=== PATIENT | female | born 1985 | race Caucasian/White ===

== ENCOUNTER 2016-08-28 09:34 | Emergency (ER) | payer BC ==
--- NOTE | 2016-08-28 10:35 | ER PHYSICIAN DOCUMENTATION ---
Physician Documentation [facility] Name:Lupis Hernandez Age:30 yrs Sex:Female :1985 Arrival Date:08/28/2016 Time:09:34 Bed3 Private MD: Harjit Husain Disposition: 08/29 20:52 Chart complete. tl1 20:53 F/U Call Note: I called on 08/29 at 2045 to f/u. she said she had no decrease in the tl1 periorbital swelling taking antihistamines. She started the Augmentin today and has noticed some decrease in the swelling this evening. Disposition: 08/28/16 10:15 Discharged to Home/Self Care. Impression: Periorbital Swelling. - Condition is Good. - Discharge Instructions: CELLULITIS, Facial. - Prescriptions for Augmentin 875- 125 mg Oral Tablet - take 1 tablet by ORAL route every 12 hours for 10 days; 20 tablet. - Medical Reconciliation form form. - Follow up: Emergency Department; When: 1 - 2 days; Reason: Recheck today's complaints, Continuance of care. - Problem is new. - Symptoms are unchanged. - Notes: THIS COULD BE EITHER A VIGOROUS LOCAL REACTION TO A BUG BITE OR AN ALLERGIC REACTION, VS, LESS LIKELY , A LOCAL SKIN INFECTION. TRY ANTIHISTAMINES FIRST, INCLUDING PEPCID. IF THAT FAILS OVER THE NEXT 6-12 HOURS, TRY THE ANTIBIOTIC (AUGMENTIN) HPI: 08/28 09:47 This 30 yrs old Female presents to ER via Private Vehicle with complaints of tl1 Facial Swelling. 09:50 Context of injury: The problem was sustained outdoors. Yesterday she noted swelling and tl1 mild redness of her right upper and lower eye lids. This has progressed. She thinks she may have had an abrasion from a tree branch or perhaps a bug bite while she was hiking. Denies f/c/s or visual changes. No eye d/c.. Historical: - Allergies: seasonal, environmental; - Home Meds: 1. Benadryl Oral 2. Ibuprofen Oral 3. Acyclovir Oral - PMHx: eye cellulitis as a child; - PSHx: septoplasty; D & C; - Tetanus: < 10 years. - Immunization history: Pneumococcal vaccine status is unknown, Flu Vaccine < 1 year. - Ebola Screening: : Patient negative for fever greater than or equal to 101.5 degrees Fahrenheit, and additional compatible Ebola Virus Disease symptoms. Patient denies exposure to infectious person. Patient denies travel to an Ebola-affected area in the 21 days before illness onset. No symptoms or risks identified at this time. . - Social history: Smoking status: Patient states was never smoker of tobacco. Patient uses alcohol occasionally. Patient/guardian denies using marijuana. ROS: 10:00 Eyes: Negative for injury, pain, redness, and discharge. tl1 10:00 Eyes: Positive for right upper and lower eyelid swelling. 10:00 ENT: Negative for injury or acute deformity. 10:00 All other systems are negative. Exam: 10:00 Constitutional: The patient appears in no acute distress, alert, awake, comfortable, tl1 non-diaphoretic, non-toxic, well developed, well hydrated, well groomed, well nourished. 10:00 Head/face: Exam is negative for acute changes. 10:00 Eyes: Periorbital structures: erythema, swelling, on the right upper eyelid, lateral canthus of right eye and right lower eyelid, Pupils: equal, round, and reactive to light and accomodation, Extraocular movements: intact throughout, Conjunctiva: normal, Lids and lashes: appear normal. 10:00 ENT: Exam is negative for acute changes. 10:00 Neck: ROM/movement: is normal, is supple, Lymph nodes: no appreciated lymphadenopathy. 10:00 Cardiovascular: Rate: normal. 10:00 Respiratory: Respirations: normal. 10:00 Neuro: Orientation: is normal, Mentation: is normal, grossly normal. Vital Signs: 09:43 BP 130 / 87; Pulse 71; Resp 16; Temp 98.5(O); Pulse Ox 95% on R/A; Weight 56.7 kg (R); arc Height 5 ft. 6 in. (167.64 cm) (R); Pain 0/10; 09:43 Body Mass Index 20.18 (56.70 kg, 167.64 cm) arc MDM: 09:47 Patient medically screened. tl1 10:00 Data reviewed: vital signs, nurses notes, and as a result, I will discharge patient. tl1 Counseling: I had a detailed discussion with the patient and/or guardian regarding: the historical points, exam findings, and any diagnostic results supporting the discharge/admit diagnosis, the need for outpatient follow up, to return to the emergency department if symptoms worsen or persist or if there are any questions or concerns that arise at home. Special discussion: She should start antibiotics in a day or so if antihistamines and cold compresses fail to improve the swelling. I suspect this is a vigorous reaction to a bug bite, rather than periorbital cellulitis at this point, but it is hard to say.. Dispensed Medications: No medications were administered Signatures: Stacie Price, ALICIA RN Harjit Fountain MD MD tl1 Lee Ann Neves
--- NOTE | 2016-08-28 10:35 | ER NURSING DOCUMENTATION ---
Nurse's Notes [facility] Name:Lupis Hernandez Age:30 yrs Sex:Female :1985 Arrival Date:08/28/2016 Time:09:34 Bed3 Private MD: Diagnosis:Periorbital Swelling Presentation: 08/28 09:45 Presenting complaint: Patient states: unsure if bitten by bug or scraped by branch to sj right eyelid. This morning eyelid is swollen. Is not impairing vision. Took benadryl and ibuprofen without relief. Transition of care: patient was not received from another setting of care. 09:45 Acuity: CHERELLE 4 sj 09:45 Method Of Arrival: Private Vehicle Triage Assessment: 09:48 General: Appears in no apparent distress, Behavior is cooperative, pleasant. Pain: sj Denies pain. Historical: - Allergies: seasonal, environmental; - Home Meds: 1. Benadryl Oral 2. Ibuprofen Oral 3. Acyclovir Oral - PMHx: eye cellulitis as a child; - PSHx: septoplasty; D & C; - Tetanus: < 10 years. - Immunization history: Pneumococcal vaccine status is unknown, Flu Vaccine < 1 year. - Ebola Screening: : Patient negative for fever greater than or equal to 101.5 degrees Fahrenheit, and additional compatible Ebola Virus Disease symptoms. Patient denies exposure to infectious person. Patient denies travel to an Ebola-affected area in the 21 days before illness onset. No symptoms or risks identified at this time. . - Social history: Smoking status: Patient states was never smoker of tobacco. Patient uses alcohol occasionally. Patient/guardian denies using marijuana. Screenin:51 Infectious Disease Risk None. Abuse screen: Denies threats or abuse. Denies injuries sj from another. Nutritional screening: No deficits noted. Assessment: 09:49 Neuro: Level of Consciousness is awake, alert, Oriented to person, place, time, event. sj Neuro: Pupils are PERRLA. EENT: Lid(s) swelling, redness to right eye, pinpoint scabbed area to outer right lid. Reports Denies blurred vision in right eye. Cardiovascular: Capillary refill < 3 seconds. Respiratory: Respiratory effort is even, unlabored. Vital Signs: 09:43 BP 130 / 87; Pulse 71; Resp 16; Temp 98.5(O); Pulse Ox 95% on R/A; Weight 56.7 kg (R); arc Height 5 ft. 6 in. (167.64 cm) (R); Pain 0/10; 09:43 Body Mass Index 20.18 (56.70 kg, 167.64 cm) arc ED Course: 09:36 Patient arrived in ED. jt 09:45 Lee Ann Neves is Primary Nurse. sj 09:47 Triage completed. sj 09:47 Harjit Pedroza MD is Attending Physician. tl1 09:49 Notified ED Physician of patient's arrival and chief complaint. Dr. Pedroza notified. sj 09:51 Valuables Remains with patient Patient has correct armband on for positive sj identification. Bed in low position. Call light in reach. Administered Medications: No medications were administered Outcome: 10:15 Discharge ordered by . tl1 10:35 Discharged to home ambulatory. lp 10:35 Condition: stable 10:35 Instructed on discharge instructions, follow up and referral plans. medication usage. 10:35 Patient left the ED. lp Signatures: Stacie Price, ALICIA RN Harjit Fountain MD MD tl1 Lorenzo, Monica, Reg Reg arc Yoana, Lee Ann Galicia
== END 2016-08-28 10:35 | disposition home or self-care (01) ==
LOC: ER 09:34
DX: H57.8 Other specified disorders of eye and adnexa (principal)
CPT/HCPCS: 99281